=== PATIENT | male | born 1955 | race Caucasian/White ===

== ENCOUNTER 2023-10-29 07:23 | Emergency (ER) | payer MEDICARE, SELFPAY ==
[2023-10-29 07:26] VITALS: BP 167/92; PULSE 71; RESP 14; TEMP 36.2; O2SAT 100
--- NOTE | 2023-10-29 07:28 | ED.RN ---
DR. ROBLERO AWARE OF PATIENT SYMPTOMS, TO ROOM PATIENT
[2023-10-29 07:29] VITALS: BMI 27.1
--- NOTE | 2023-10-29 07:42 | CT_ITS ---
STUDY: CT BRAIN WITHOUT CONTRAST REASON FOR EXAM: Male, 68 years old. Dizziness RADIATION DOSAGE (If Supplied By Facility): CTDIvol = ( 47.06 ) mGy, DLP = ( 925.62 ) mGycm TECHNIQUE: Transaxial CT imaging of the brain was performed without administration of intravenous contrast material. Individualized dose optimization techniques were used for this CT. COMPARISON: Comparison is made with prior study December 21, 2012. FINDINGS: Normal soft tissue structures. Normal calvarium. There is mild cerebral atrophy with widening of the extra-axial spaces and ventricular dilatation. There are areas of decreased attenuation within the white matter tracts of the supratentorial brain, consistent with microvascular disease changes. Stable tiny bilateral lytic lesions in the basal ganglia. Normal brainstem. There is mild cerebellar atrophy. There is no intracranial hemorrhage. There are no findings of an acute ischemic infarction. Atherosclerotic calcification of the cavernous portions of the internal carotid arteries bilaterally. Normal visualized paranasal sinuses. CT/Brain/Head without Contrast IMPRESSION: Chronic involutional changes of the brain. Electronically Signed: Abelardo Mena MD at 8:24 EDT ,
--- NOTE | 2023-10-29 07:44 | EKG12_ITS ---
Test Reason : Blood Pressure : / mmHG Vent. Rate : 063 BPM Atrial Rate : 063 BPM P-R Int : 188 ms QRS Dur : 082 ms QT Int : 398 ms P-R-T Axes : 012 -21 066 degrees QTc Int : 407 ms Normal sinus rhythm Minimal voltage criteria for LVH, may be normal variant ( R in aVL ) Cannot rule out Septal infarct , age undetermined Abnormal ECG Confirmed by Dax Pathak ([id number]), associate entertainment editor ALMA DELIA HERNANDEZ ([id number]) on 10/30/2023 9:43:32 AM Referred By: ANNIKA Confirmed By:Dax Pathak
--- NOTE | 2023-10-29 07:44 | EX.ED.DYSGE1 ---
HPI History of Present Illness Chief Complaint: Dizziness Narrative Narrative: 68-year-old male past medical history of hypertension, states that he had a stroke approximately 10 years ago. It left him with what he calls left-sided imbalance, and feelings of off balance. He does not take Plavix but states he takes baby aspirin on a daily basis along with his antihypertensives. He went to bed yesterday evening at around 10 PM. This was around 9 hours ago. He woke up in the middle of the night around 3 AM after he had fallen asleep on the couch. This was around 4-1/2 hours ago. He states he felt very off balance. This is more so than usual. He was stumbling around, but went back to bed. He awoke earlier, and while his symptoms have improved significantly, he took his blood pressure and it was elevated. He denies any headache or paresthesias. States he had colonoscopy 10 years ago before his reported stroke, and had colonoscopy a few weeks ago as well. However, he had paresthesias of his arm prior to his previous stroke but denies them currently. He was concerned because of the feeling of off balance this morning that had improved. [facility] Medical History Hypertension Stroke/cerebrovascular accident Home Medications ?Medication ?Instructions ?Recorded ?Last Taken ?Type amlodipine 5 mg tablet 5 mg PO DAILY 10/29/23 Unknown History aspirin 81 mg tablet,delayed 81 mg PO DAILY 10/29/23 Unknown History release (Adult Aspirin Regimen) losartan 50 mg tablet 50 mg PO DAILY 10/29/23 Unknown History Allergy/AdvReac Type Severity Reaction Status Date / Time Sulfa (Sulfonamide Allergy Unknown PT UNSURE Verified 10/29/23 07:29 Antibiotics) OF REACTION Social History Smoking Status: Former smoker ROS ROS ED ROS Narrative Constitutional: No fever, no chills. HEENT: No sore throat. No neck pain. No loss of vision. No rhinorrhea. Cardiovascular: No chest pain. No palpitations. No pedal edema. Respiratory: No cough, no shortness of breath. Abdominal: No abdominal pain. No nausea. No vomiting. Genitourinary: No dysuria. No hematuria. Musculoskeletal: No myalgias. No arthralgias. Neurologic: No headaches. No dizziness. No lightheadedness. No paresthesias. [place] off balance this morning, stumbling around. Skin: No rash. No change in color. Psychiatric: No depression. No anxiety. EXAM Physical Exam Narrative Exam Narrative: Afebrile. Vital signs noted. HEENT: Normocephalic. Atraumatic. PERRL, EOMI. Neck soft and supple. No point tenderness or step off. Cardiovascular: Regular rate and rhythm. No murmurs, rubs, or gallops appreciated. Respiratory: No tachypnea. Lungs clear to auscultation bilaterally. Gastrointestinal: Abdomen soft, nontender, with normoactive bowel sounds. No rebound or guarding. Neurological: Awake. Alert. Nonfocal, nonlateralizing. NIH stroke scale is 0. Skin: No rash. Normal color. No pallor. Musculoskeletal: No pedal edema. Full range of motion extremities. Const Vital Signs: 10/29/23 07:26 10/29/23 07:26 10/29/23 08:25 Temperature 97.1 F L Temperature Source Temporal Pulse Rate 71 71 55 L Respiratory Rate 14 14 13 Blood Pressure 167/92 H 167/92 H 181/126 H Blood Pressure Mean 117 117 144 Pulse Ox 100 100 97 Oxygen Delivery Method Room Air Room Air Room Air 10/29/23 09:00 Temperature Temperature Source Pulse Rate 107 H Respiratory Rate 24 H Blood Pressure 153/85 H Blood Pressure Mean 107 Pulse Ox 97 Oxygen Delivery Method Room Air MDM MDM MDM Narrative Medical decision making narrative: I do not feel that stroke team needs to be activated as his NIH stroke scale is 0 and he had these vague complaints of feeling off balance that have rapidly improved. He has no debilitating deficit on examination. Additionally, while his last known well time was maybe 3:00 when he awoke, he had gone to bed at 10, so I do not feel that he is a TNK candidate either in addition to the fact that he has no debilitating deficit. General workup will be pursued including CT of the brain, and laboratory work to check for electrolyte imbalance or dehydration. I reviewed the CT report of the brain and there are chronic involutional changes but no acute hemorrhage or mass. I reviewed his laboratory work and he has normal white count of 6.9, hemoglobin normal at 16.2 with platelet count normal at 196. Coagulation studies are negative and INR of 1.0, APTT 27.2, electrolyte panel is grossly unremarkable except for anion gap low at 4 with glucose appropriately elevated at 102, LFTs are normal. Total bili slightly elevated at 1.5 which I think is nonspecific. Blood pressure has come down to 153/85. He was more concerned about his blood pressure being elevated as well. High-sensitivity troponin is 8. Urinalysis is negative for infection. EKG was obtained and interpreted by myself independently as normal sinus rhythm at 63 bpm without ectopy or acute ST changes. No STEMI. Regarding his nonspecific dizziness and unsteady gait where he states he was bouncing off the poon, this is improved significantly. I have low suspicion for stroke based on his NIH stroke scale and workup. In discussion with the patient and through shared decision making, was not felt that he needed observation or admission for MRI. He will continue his daily baby aspirin and follow-up with his primary care provider. Return instructions to the emergency department were reviewed. Disposition is discharged home in stable condition. History & Record Review Discussion w/independent historian: Patient Lab Data Attestation: I reviewed the patient's lab results. Labs: Laboratory Results - last 24 hr 10/29/23 10/29/23 07:31 08:00 WBC 6.9 RBC 4.97 Hgb 16.2 Hct 47.3 MCV 95.2 H MCH 32.6 H MCHC 34.2 RDW Std Deviation 42.4 RDW Coeff of Veena 12.2 Plt Count 196 MPV 10.3 Immature Gran % (Auto) 0.600 Neut % (Auto) 60.1 Lymph % (Auto) 26.2 Lyman % (Auto) 9.0 Eos % (Auto) 2.9 Baso % (Auto) 1.2 H Absolute Neuts (auto) 4.2 Absolute Lymphs (auto) 1.81 Nucleated RBC % 0 PT 13.2 INR 1.0 APTT 27.2 Sodium 139 Potassium 4.0 Chloride 106 Carbon Dioxide 29.0 Anion Gap 4 L BUN 17 Creatinine 1.12 Estim Creat Clear Calc 59.38 Est GFR (MDRD) Af Amer 83 Est GFR (MDRD) Non-Af 69 BUN/Creatinine Ratio 15.2 Glucose 102 Calcium 9.5 Total Bilirubin 1.50 H AST 28 ALT 31 Alkaline Phosphatase 82 Troponin I High Sens 8 Total Protein 7.0 Albumin 3.8 Globulin 3.2 Albumin/Globulin Ratio 1.2 Urine Color Straw Urine Clarity Clear Urine pH 7.0 Ur Specific [place] 1.005 Urine Protein Negative Urine Glucose (UA) Normal Urine Ketones Negative Urine Occult Blood Negative Urine Nitrite Negative Urine Bilirubin Negative Urine Urobilinogen Normal Ur Leukocyte Esterase Negative Urine RBC 0 SEEN Urine WBC 0 SEEN Ur Squamous Epith Cells 0 SEEN Urine Bacteria 0 SEEN Urine Mucus 0 SEEN POC Glucose 108 H Radiography Diagnostic Testing: Clinical Impression(s) from Imaging Studies Brain CT 10/29/23 07:42 IMPRESSION: Chronic involutional changes of the brain. Electronically Signed: Abelardo Mena MD at 8:24 EDT , Chest X-Ray 10/29/23 08:04 IMPRESSION: The lungs are clear. No acute abnormality is present. Electronically Signed: Abelardo Mena MD at 8:24 EDT , Discharge Plan Triage Chief Complaint: Dizziness ED Provider: Freeman De La Cruz Dx/Rx/DC Orders Clinical Impression: Balance problem, HTN (hypertension) Instructions: ED Dizziness, Uncertain Cause, ED Fall Prevention Prescriptions: No Action losartan 50 mg tablet 50 mg PO DAILY amlodipine 5 mg tablet 5 mg PO DAILY aspirin [Adult Aspirin Regimen] 81 mg tablet,delayed release (DR/EC) 81 mg PO DAILY Primary Care Provider: Care Physician,No Primary Referrals: Ernesto Avery MD [Med Staff - Learning Disabilities Specialist] - As soon as possible Care Physician,No Primary [Primary Care Provider] - Activity Restrictions/Additional Instructions: Return with new or worsening symptoms. Print Language: Frisian Disposition Disposition: Home, Self Care
[2023-10-29 07:49] LABS: Bedside Glucose 108 mg/dL (74-106)
[2023-10-29 08:01] LABS: Absolute Lymphocyte Count 1.81 X10^3/uL (0.83-4.51); Absolute Neutrophil Count 4.2 X10^3/uL (2.0-7.7); Basophil# 0.08 X10^3/uL; Basophil% 1.2 % (0-1); Eosinophils% 2.9 % (0-5); Hematocrit 47.3 % (40-54); Hemoglobin 16.2 g/dL (13.0-16.5); Lymphocyte # 1.81 X10^3/ul (0.83-4.51); Lymphocyte % 26.2 % (19-41); Mean Corp Hgb Conc 34.2 g/dL (32-36); Mean Corpuscular Hgb 32.6 pg (27.0-32.0); Mean Corpuscular Volume 95.2 fL (80-94); Mean Platelet Vol. 10.3 fl (6.2-12.0); Monocyte# 0.62 X10^3/uL; NRBC Flagged by Analyzer 0 % (0-5); Neutrophil # 4.16 X10^3/uL (2.7-7.7); Neutrophil % 60.1 % (47-70); Platelet Count 196 K/mm3 (150-450); RBC Distribution Width CV 12.2 % (11.6-14.6); RBC Distribution Width SD 42.4 fl (35.1-43.9); Red Blood Count 4.97 M/mm3 (4.6-6.2); White Blood Count 6.9 K/mm3 (4.4-11.0)
[2023-10-29 08:04] LABS: Bacteria 0 SEEN /hpf (None Seen); Mucous, Urine 0 SEEN /hpf (<or=2+); Red Blood Cells-Urine 0 SEEN /hpf (0-5); Squamous Epithelial Cells - UA 0 SEEN /hpf (0-5); White Blood Cells 0 SEEN /hpf (0-5)
--- NOTE | 2023-10-29 08:04 | RAD_ITS ---
STUDY: X-RAY CHEST REASON FOR EXAM: Male, 68 years old. CAD TECHNIQUE: Single AP portable view of the chest. COMPARISON: Comparison is made with prior study December 21, 2012. FINDINGS: EKG electrodes are seen. The lungs are clear and expanded. There is no demonstrated pleural abnormality. Normal size heart. Normal mediastinum and anais. Normal visualized pulmonary arteries. Normal visualized aortic arch and descending thoracic aorta. There are diffuse degenerative changes of the visualized thoracic spine. Normal visualized ribs, clavicles, and shoulders. There is no demonstrated abnormality of the visualized soft tissue structures of the upper abdomen. RAD/Chest 1 View (Portable) IMPRESSION: The lungs are clear. No acute abnormality is present. Electronically Signed: Abelardo Mena MD at 8:24 EDT ,
[2023-10-29 08:13] LABS: ALB/GLOB Ratio 1.2 RATIO (0.9-2.4); AST(SGOT) 28 U/L (15-37); Alanine Aminotransfer ALT/SGPT 31 U/L (16-61); Albumin, Serum 3.8 g/dL (3.2-5.0); Alkaline Phosphatase 82 U/L (45-117); Anion Gap 4 (5-15); BUN 17 mg/dL (7-18); BUN/Creat Ratio 15.2 RATIO (10-20); Calcium,Total 9.5 mg/dL (8.5-10.1); Chloride 106 mmol/L (98-107); Creatinine, Serum 1.12 mg/dL (0.70-1.30); EST Glomerular Filtration Rate 69 mL/min (>60); Est Glom Filt Rate - Afr Amer 83 mL/min (>60); Estimated Creatinine Clearance 59.38 ml/min; Globulin 3.2 g/dL (2.2-4.2); Glucose 102 mg/dL (74-106); Sodium Level 139 mmol/L (136-145); Troponin-I HS 8 pg/mL (3.0-78.0)
[2023-10-29 08:16] LABS: Color, Urine Straw (Yellow); Glucose, Dipstick Normal (Normal); Ketone-Dipstick Negative (Negative); Leukocyte Esterase-Dipstick Negative /ul (Negative); Nitrite-Dipstick Negative (Negative); Occult Blood-Urine Negative /ul (Negative); Protein-Dipstick Negative (Negative); Specific Gravity, Urine 1.005 (1.002-1.030); Urine Bilirubin Dipstick Negative (Negative); Urine Clarity Clear (Clear); Urine Urobilinogen Normal (Normal)
[2023-10-29 08:25] VITALS: BP 181/126; PULSE 55; RESP 13; O2SAT 97
[2023-10-29 09:00] VITALS: BP 153/85; PULSE 107; RESP 24; O2SAT 97
[2023-10-29 09:09] LABS: Prothrombin Time (Protime)PT. 13.2 SECONDS (11.7-14.9)
[2023-10-29 09:10] LABS: Partial Thromboplast Time 27.2 Seconds (24.1-36.2)
[2023-10-29 09:48] VITALS: BP 154/81; PULSE 56; RESP 14; TEMP 36.3; O2SAT 97
== END 2023-10-29 09:55 | disposition home or self-care (01) ==
PROVIDERS: Emergency Provider Emergency Medicine; Visit Provider Emergency Medicine
DX: R26.89 Other abnormalities of gait and mobility (principal); R42 Dizziness and giddiness; I10 Essential (primary) hypertension; Z79.82 Long term (current) use of aspirin; Z86.73 Personal history of transient ischemic attack (TIA), and cerebral infarction without residual deficits; Z79.899 Other long term (current) drug therapy; Z87.891 Personal history of nicotine dependence
CPT/HCPCS: 70450; 71045; 80053; 81001; 82962; 84484; 85025; 85610; 85730; 93005; 99282; A4216